=== PATIENT | female | born 1975 | race Caucasian/White ===

== ENCOUNTER → 2016-07-20 | Outpatient (REF) | payer OTHER, BC ==
[~2016-07-20] MED LIST: CITA20TA4 PO; HYDR25TAB PO; ZANTTAB PO; ZYRT10CA PO
== END ==
LOC: M LAB REF 09:32
PROVIDERS: ATTEND Family Medicine
DX: Z01.419 Encounter for gynecological examination (general) (routine) without abnormal findings (principal); Z11.51 Encounter for screening for human papillomavirus (HPV); R85.610 Atypical squamous cells of undetermined significance on cytologic smear of anus (ASC-US)

== ENCOUNTER → 2017-02-12 | Outpatient (REF) | payer OTHER | LOC: M LAB REF 15:53 | PROVIDERS: ATTEND Family Medicine | DX: Z01.419 Encounter for gynecological examination (general) (routine) without abnormal findings (principal); Z11.51 Encounter for screening for human papillomavirus (HPV) ==

== ENCOUNTER → 2017-06-01 | Outpatient (REF) | payer OTHER | LOC: M LAB REF 16:57 | DX: J02.9 Acute pharyngitis, unspecified (principal) ==

== ENCOUNTER 2019-05-01 12:26 | Outpatient (CLI) | payer BC, OTHER ==
[~2019-05-01] VITALS: Ht 170.2 cm; Wt 75.0 kg
[~2019-05-01 12:26] MED LIST changes: -CITA20TA4 PO; +CITA20TA6 PO; +ZANT150T40 PO; -ZANTTAB PO
[2019-05-01 12:37] VITALS: BP 125/70
[2019-05-01] MEDS ORDERED: FERRIC CARBOXYMALTOSE INJ 750 MG in NS 250 ML IV ONE (13:00)
[2019-05-01 13:21] VITALS: BP 117/72
[2019-05-01 14:24] VITALS: BP 97/60
[2019-05-01 14:46] VITALS: BP 100/56
== END 2019-05-01 14:46 | disposition home or self-care (01) ==
LOC: M INFU 12:26
PROVIDERS: ATTEND Family Medicine
DX: D50.9 Iron deficiency anemia, unspecified (principal)
CPT/HCPCS: 96365; J1439

== ENCOUNTER 2019-05-08 09:18 | Outpatient (CLI) | payer BC, OTHER ==
[~2019-05-08] VITALS: Ht 170.2 cm; Wt 75.0 kg
[2019-05-08 09:20] VITALS: BP 137/60
[2019-05-08] MEDS ORDERED: FLINCHW5 PO (09:43)
[2019-05-08 10:50] VITALS: BP 99/58
[2019-05-08] MEDS ORDERED: FERRIC CARBOXYMALTOSE INJ 750 MG in NS 250 ML IV ONE (11:00)
[2019-05-08 12:10] VITALS: BP 114/67
[2019-05-08 12:30] VITALS: BP 126/65
[2019-05-08 13:30] VITALS: BP 124/63
== END 2019-05-08 13:30 | disposition home or self-care (01) ==
LOC: M INFU 09:18
PROVIDERS: ATTEND Family Medicine
DX: D50.9 Iron deficiency anemia, unspecified (principal)
CPT/HCPCS: 96365; J1439

== ENCOUNTER → 2020-05-09 | Outpatient (REF) | payer BC, OTHER ==
[~2020-05-09] MED LIST changes: +FLINCHW5 PO
== END ==
LOC: M LAB REF 12:50
PROVIDERS: ATTEND Family Medicine
DX: J06.9 Acute upper respiratory infection, unspecified (principal); Z20.89 Contact with and (suspected) exposure to other communicable diseases

== ENCOUNTER 2020-08-18 09:27 | Emergency (ER) | payer BC, OTHER ==
[~2020-08-18] VITALS: Ht 170.2 cm; Wt 82.0 kg
[~2020-08-18 09:27] MED LIST changes: +HYDR-3490 PO; -HYDR25TAB PO
[2020-08-18 10:15] LABS: BASO # 0.1 10^3/uL (0.0-0.2); BASO % 0.8 % (0.0-1.0); EOS # 0.2 10^3/uL (0.0-0.5); EOS % 2.6 % (0.0-3.0); HEMATOCRIT 38.8 % (36.0-47.0); HEMOGLOBIN 12.2 g/dl (12.0-15.5); LYMPH # 2.2 10^3/uL (1.5-5.0); LYMPH % 33.8 % (24.0-44.0); MEAN CORPUSCULAR HEMOGLOBIN 27.1 pg (27.0-33.0); MEAN CORPUSCULAR HGB CONC 31.4 g/dl (32.0-36.5); MEAN CORPUSCULAR VOLUME 86.2 fl (80.0-96.0); MONO # 0.7 10^3/uL (0.0-0.8); NEUTROPHILS # 3.4 10^3/uL (1.5-8.5); NEUTROPHILS % 52.3 % (36.0-66.0); PLATELET COUNT, AUTOMATED 314 10^3/uL (150-450); WHITE BLOOD COUNT 6.5 10^3/uL (4.0-10.0)
[2020-08-18 10:29] LABS: INR 0.91; PROTHROMBIN TIME 12.5 SECONDS (12.5-14.3)
[2020-08-18 10:30] LABS: PARTIAL THROMBOPLASTIN TIME 26.1 SECONDS (24.2-38.5)
[2020-08-18 10:39] LABS: ALBUMIN 3.6 GM/DL (3.2-5.2); BILIRUBIN,DIRECT 0.3 MG/DL (0.0-0.2); TOTAL PROTEIN 6.4 GM/DL (6.4-8.2)
[2020-08-18] MEDS ORDERED: ONDANSETRON 4MG/2ML VIAL IV ONE (12:10)
[2020-08-18] MEDS: MORPHINE 4 MG/ML 1ML VIAL/SYRINGE (J2270) IV PRN ×2 (12:22→14:12)
--- NOTE | 2020-08-18 12:48 | REP ---
INDICATION: epigastric pain. COMPARISON: None. TECHNIQUE: Real-time sonographic evaluation of right upper quadrant performed. FINDINGS: A few subcentimeter stones are seen within the gallbladder. There is no gallbladder wall thickening or pericholecystic fluid.. There is no intrahepatic or extrahepatic biliary dilatation, common bile duct measures 4 mm in maximum diameter. The liver demonstrates homogeneous echotexture with no gross mass. Pancreas is not well seen due to overlying bowel gas. The right kidney demonstrates no hydronephrosis, with a normal size of 10.2 cm in length. No free fluid is seen. IMPRESSION: There are a few subcentimeter gallstones within the gallbladder with no gallbladder wall thickening, pericholecystic fluid or biliary dilatation. <Electronically signed by Cecilio Mckeon > 08/18/20 [id number]
--- NOTE | 2020-08-18 13:14 | REP ---
INDICATION: epigastric pain r/o aortic dissection COMPARISON: 06/01/2013. TECHNIQUE: PA/Lateral FINDINGS: Lungs: Clear, no infiltrate. Heart: Normal in size. Mediastinum: Mediastinal silhouette unremarkable. Pleural angles: Unremarkable.. Bones and soft tissues: Unremarkable. IMPRESSION: No acute pulmonary disease. <Electronically signed by Cecilio Mckeon > 08/18/20 2330
[2020-08-18] MEDS ORDERED: MORPHINE 4 MG/ML 1ML VIAL/SYRINGE (J2270) IV PRN (14:20)
[2020-08-18] MEDS ORDERED: ISOVUE-370 76% 100ML VIAL As Ordered ONE (14:33)
--- NOTE | 2020-08-18 15:39 | REP ---
INDICATION: epigastric pain evaluate for pancreatitis COMPARISON: None. TECHNIQUE: CT Scan of the abdomen was performed with intravenous administration of 100 cc of Isovue 370, without oral contrast. FINDINGS: Lung bases: Unremarkable. Liver: Normal Gallbladder: Unremarkable. Spleen: Normal. Adrenals: Normal. Pancreas: Normal. Kidneys: Normal. Small and large bowel: Unremarkable. Free fluid: None. Abdominal aorta: No aneurysm or dissection. Adenopathy: None. Osseous structures: There are degenerative changes of the spine without compression deformity. Small and large bowel: There is no free air or obstruction. There has been prior gastric surgery. IMPRESSION: No acute abnormalities. The pancreas is unremarkable in appearance, but this does not preclude a clinical diagnosis of pancreatitis. <Electronically signed by Cecilio Mckeon > 08/18/20 0744
[2020-08-18 15:55] VITALS: BP 106/59
--- NOTE | 2020-08-18 16:11 | ECGEPIP ---
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
[2020-08-18] MEDS ORDERED: OMEP40CA97 PO (16:32)
== END 2020-08-18 16:51 | disposition home or self-care (01) ==
LOC: M ED 09:27
DX: K80.20 Calculus of gallbladder without cholecystitis without obstruction (principal); R31.9 Hematuria, unspecified; K21.9 Gastro-esophageal reflux disease without esophagitis; N80.9 Endometriosis, unspecified; Z79.899 Other long term (current) drug therapy
CPT/HCPCS: 71046; 74160; 76705; 80047; 80076; 81001; 82150; 83690; 84702; 85025; 85610; 85730; 86850; 86900; 86901; 93005; 96374; 96375; 96376; 99284; J2270; J2405; Q9967

== ENCOUNTER → 2020-12-25 | Outpatient (CLI) | payer BC, OTHER ==
[~2020-12-25] MED LIST changes: +OMEP40CA4 PO; +PEPC1TAB5 PO; +ZYRTTAB8 PO
== END ==
LOC: M LABSMTC 13:44
PROVIDERS: ATTEND Anesthesiology
DX: Z01.818 Encounter for other preprocedural examination (principal)

== ENCOUNTER 2020-12-30 07:26 | Day surgery (SDC) | payer BC, OTHER ==
[~2020-12-30] VITALS: Ht 170.2 cm; Wt 78.9 kg
[~2020-12-30 07:26] MED LIST changes: +LR 1,000 ML IV ONE
[2020-12-30] MEDS ORDERED: ROCURONIUM BROMIDE 50 MG/5 ML VIAL As Ordered ONE (08:21)
[2020-12-30] MEDS ORDERED: LIDOCAINE 2% 100MG/5ML SDV (FOR ANES.) As Ordered ONE (08:21)
[2020-12-30] MEDS ORDERED: propofoL 200 MG/20 ML VIAL As Ordered ONE (08:21)
[2020-12-30] MEDS ORDERED: ACETAMINOPHEN 1000MG 100ML IV BTL (OFIRMEV) (J0131 PER 10MG) As Ordered ONE ×2 (08:22→12:38)
[2020-12-30] MEDS ORDERED: MIDAZOLAM INJ 2MG/2ML VIAL (J2250 PER 1MG) As Ordered ONE (08:22)
[2020-12-30] MEDS ORDERED: fentaNYL 250 MCG/5 ML INJECTION (J3010) As Ordered ONE (08:22)
[2020-12-30] MEDS ORDERED: BUPIVACAINE/EPIN 0.25% 30 ML VIAL As Ordered ONE (11:44)
[2020-12-30] MEDS ORDERED: LIDOCAINE 5% OINT 30GM TUBE As Ordered ONE (12:15)
[2020-12-30] MEDS ORDERED: ONDANSETRON 4MG/2ML VIAL As Ordered ONE ×2 (12:39→13:21)
[2020-12-30] MEDS ORDERED: dexameTHASONE 4 MG/ML 1ML VIAL (J1100 PER 1MG) As Ordered ONE (12:39)
[2020-12-30] MEDS ORDERED: KETOROLAC 60MG 2ML VIAL As Ordered ONE (12:39)
[2020-12-30] MEDS ORDERED: SUGAMMADEX SODIUM 500 MG/5 ML VIAL (BRIDION) As Ordered ONE (12:41)
[2020-12-30] MEDS ORDERED: oxyCODONE 5MG TAB PO PRN (13:25)
[2020-12-30] MEDS ORDERED: LR 1,000 ML IV SCH (13:25)
[2020-12-30] MEDS ORDERED: ONDANSETRON 4MG/2ML VIAL IV PRN (13:25)
[2020-12-30] MEDS ORDERED: NORCO, ANEXSIA 5/325MG TABLET (HYDROcodone/ACETAMINOPHEN) PO PRN (13:30)
[2020-12-30] MEDS: fentaNYL 100 MCG/2 ML INJECTION (J3010) IV PRN ×3 (13:32→13:51)
--- NOTE | 2020-12-30 14:11 | RO ---
OPERATIVE NOTE DATE OF OPERATION: 12/30/2020 PREOPERATIVE DIAGNOSIS: Symptomatic cholelithiasis. POSTOPERATIVE DIAGNOSIS: Symptomatic cholelithiasis. PROCEDURE: Robotic cholecystectomy. SURGEON: Cecilio Tucker DO FINANCIAL UNDERWRITER: JAZMIN Hurley ANESTHESIA: General. ESTIMATED BLOOD LOSS: 5 mL COMPLICATIONS: None. INDICATIONS FOR PROCEDURE: The patient is a 45-year-old female who presents with right upper quadrant pain, found to have symptomatic cholelithiasis. Recommendation was to proceed with robotic cholecystectomy. Risks and benefits of the procedure not limited to but including bleeding, infection, hernia, damage to surrounding structures and need for further surgery were discussed in detail with the patient. Informed consent was obtained and procedure is planned. DESCRIPTION OF PROCEDURE: The patient was brought back to operating room 7. After sufficient sedation, the abdomen was sterilely prepped and draped. Next, a timeout was done to confirm proper patient and proper procedure. Following that, an 8 mm incision was made in the left upper quadrant. A Veress needle was inserted and the abdomen was insufflated to 15 mmHg. The Veress needle was then removed and an 8 mm OptiView port was used to gain access to the abdomen. Once the abdomen was entered, three more ports were placed across the upper abdomen into the right upper quadrant. Next, the robot was docked. From the console, the fundus of the gallbladder was elevated towards the right shoulder. Omental adhesions of the gallbladder were taken down with sharp dissection. The cystic duct and cystic artery were then clearly dissected free using a combination of blunt and sharp dissection. Once they were both clearly identified, they were both doubly clipped and cut. The gallbladder was then dissected from the gallbladder fossa using electrocautery and placed intact inside of a 5 mm EndoCatch bag. The gallbladder was then removed through the right upper quadrant port site. Once the gallbladder was removed, the abdomen was examined to confirm hemostasis. The ports were removed. The abdomen was desufflated. The skin incisions were closed with 4-0 Vicryl subcuticular sutures. The abdomen was cleaned and dried. Steri-Strips, 4x4 and tape were applied.
[2020-12-30 14:55] VITALS: BP 131/78
== END 2020-12-30 15:15 | disposition home or self-care (01) ==
LOC: M SDC 07:26
PROVIDERS: ATTEND Surgery
DX: K80.10 Calculus of gallbladder with chronic cholecystitis without obstruction (principal); K82.8 Other specified diseases of gallbladder; K21.9 Gastro-esophageal reflux disease without esophagitis; Z79.899 Other long term (current) drug therapy; Z98.84 Bariatric surgery status; Z87.891 Personal history of nicotine dependence
CPT/HCPCS: 47562; 81025; 88304; J0131; J1100; J1885; J2250; J2405; J3010; S2900

== ENCOUNTER → 2022-07-10 | Outpatient (CLI) | payer BC, OTHER ==
[~2022-07-10] MED LIST changes: -LR 1,000 ML IV ONE
== END ==
LOC: M WHC 06:34
PROVIDERS: ATTEND Family Medicine
DX: R74.01 Elevation of levels of liver transaminase levels (principal)

== ENCOUNTER → 2022-12-04 | Outpatient (CLI) | payer BC, OTHER ==
[~2022-12-04] MED LIST changes: +PROHANCE 279.3MG/ML 15ML VIAL As Ordered ONE
== END ==
LOC: M RAD 13:01
PROVIDERS: ATTEND Family Medicine
DX: D35.2 Benign neoplasm of pituitary gland (principal); R42 Dizziness and giddiness; H53.8 Other visual disturbances

== ENCOUNTER → 2023-04-15 | Outpatient (CLI) | payer BC, OTHER ==
[~2023-04-15] MED LIST changes: -PROHANCE 279.3MG/ML 15ML VIAL As Ordered ONE
== END ==
LOC: M WUC 10:49
PROVIDERS: ATTEND Nurse Practitioner Family
DX: R06.02 Shortness of breath (principal)